=== PATIENT | female | born 1950 | race American Indian/Alaskan Native ===

== ENCOUNTER 2024-09-13 20:31 | Emergency (ER) | payer MEDICARE, BC, SELFPAY ==
[2024-09-13 20:35] VITALS: BP 177/87
[2024-09-13 20:59] LABS: % Basophils 0.7 % (0-2); % Eosinophils 4.1 % (0-6); % Immature Granulocytes 0.3 % (0-0.5); % Lymphocytes 34.6 % (20.5-51.1); % Monocytes 6.7 % (1.7-9.3); % Neutrophils 53.6 % (42.2-75.2); Absolute Basophils 0.1 10^3/uL (0-0.2); Absolute Eosinophils 0.3 10^3/uL (0-0.7); Absolute Lymphocytes 2.5 10^3/uL (1.2-3.4); Absolute Monocytes 0.5 10^3/uL (0.1-0.6); Absolute Neutrophils 3.9 10^3/uL (1.4-6.5); Hematocrit 39.3 % (37.0-47.0); Hemoglobin 13.1 g/dL (12.0-16.0); Mean Corp Hgb Conc. 33.3 g/dL (33.0-37.0); Mean Corpuscular Hgb 29.6 pg (27.0-31.0); Mean Corpuscular Volume 88.9 fL (81.0-99.0); Mean Platelet Volume 9.3 fL (7.4-10.4); Nucleated Red Blood Cells % 0 %; Platelet Count 325 10^3/uL (130-400); Red Blood Cell Count 4.42 10^6/uL (4.20-5.40); Red Cell Dist. Width 14.6 % (11.5-14.5); White Blood Cell Count 7.3 10^3/uL (4.8-10.8)
[2024-09-13 21:10] LABS: ALT (SGPT) 22 U/L (0-35); AST (SGOT) 26 U/L (14-36); Albumin 4.5 g/dl (3.5-5.0); Alkaline Phosphatase 45 U/L (38-126); Blood Urea Nitrogen 22 mg/dl (7-17); Calcium 10.3 mg/dl (8.4-10.2); Carbon Dioxide 21 mmol/L (22-30); Chloride 107 mmol/L (98-107); Glucose 223 mg/dl (70-99); Sodium 141 mmol/L (135-145); Total Bilirubin 0.2 mg/dl (0.2-1.3); Total Protein 7.1 g/dl (6.3-8.2); eGFR > 60.00
[2024-09-13 21:48] VITALS: BMI 22.9
[2024-09-13 22:04] VITALS: BP 190/74
[2024-09-13 22:12] LABS: Urine Albumin Trace (Neg - Trace); Urine Bilirubin Negative (Negative); Urine Character Clear (Clear); Urine Color Yellow; Urine Glucose 3+ (Negative); Urine Ketone Negative (Negative); Urine Leukocyte 2+ (Negative); Urine Nitrite Negative (Negative); Urine Occult Blood 2+ (Negative); Urine Urobilinogen Negative (Neg - 1+)
[2024-09-13 22:21] LABS: Urine Squamous Cell >30 /LPF (Few)
[2024-09-13 22:22] LABS: Urine Bacteria Many (Negative); Urine White Cell 16-20 /HPF (0-5)
--- NOTE | 2024-09-13 22:48 | ED.GENMED ---
History of Present Illness
General
Chief Complaint: Vaginal Bleeding
Source: patient
Exam Limitations: none
Time Seen by Provider: 09/13/24 21:29
History of Present Illness
History of Present Illness:
73-year-old female presents with persistent and worsening uterine prolapse with associated bleeding. She also notes dysuria and increased concede of urination. She notes lower abdominal discomfort that occasionally radiates to the mid back. No
fevers nausea or vomiting. No chest pain or shortness of breath.
Phy Exam
Physical Exam
Physical Exam:
General: Well-appearing female no acute respiratory distress
HEENT: Normocephalic atraumatic
Heart: Regular rate and rhythm
Lungs: Clear no wheeze
Abdomen is soft tender to the lower abdomen left greater than the right. No guarding rebound no bowel sounds
exam: This was performed with female utility spray operator in the room. There is a mild uterine prolapse. The urethra is irritated. No active bleeding
Extremities: No cyanosis
Course
Orders/Labs/Results
Orders:
Orders
09/13/24 20:53
Complete Blood Count/With Diff Urgent
Comprehensive Metabolic Panel Urgent
09/13/24 21:43
CT Abd/pelvis W Iv Cont Urgent
Comment:
Reason For Exam: lower abdominal pain
09/13/24 22:06
Urinalysis Reflex To Culture Urgent
Date Specimen was Collected: 09/13/24
Time Specimen was Collected: 20:43
Urine Microscopic Reflex Cult Urgent
Urine Culture Urgent
DARRIN Source: U
Specimen Description:
Date Specimen was Collected: 09/13/24
Time Specimen was Collected: 20:43
09/13/24 23:48
Cefdinir [Omnicef] 300 mg PO NOW STA
Abnormal Lab Results
09/13/24 09/13/24
20:53 22:06
RDW 14.6 H %
(11.5-14.5)
Carbon Dioxide 21 L mmol/L
(22-30)
BUN 22 H mg/dl
(7-17)
Glucose 223 H mg/dl
(70-99)
Calcium 10.3 H mg/dl
(8.4-10.2)
Ur Occult Blood Reflex 2+ A
(Negative)
Leukocyte Esterase Rfl 2+ A
(Negative)
Urine RBC 3-6 A /HPF
(0-2)
Urine WBC (Reflex) 16-20 A /HPF
(0-5)
Urine Bacteria (Reflex) Many A
(Negative)
Urine Glucose 3+ A
(Negative)
09/13/24 20:53
09/13/24 20:53
Vital Signs
Initial and Last Documented VS:
Initial Vital Signs
Temp Pulse BP Pulse Ox
97.8 F 86 177/87 98
09/13/24 20:35 09/13/24 20:35 09/13/24 20:35 09/13/24 20:35
Last Documented Vital Signs
Temp Pulse Resp BP Pulse Ox
97.8 F 67 18 190/74 97
09/13/24 20:35 09/13/24 22:30 09/13/24 22:33 09/13/24 22:04 09/13/24 22:30
*Critical Care Note
Total Time (30-74mins, 75-104mins- exclusive of procedures): Not Applicable
Update Note
Update Note:
Patient with uterine prolapse on exam but also has urinary symptoms. Question cystitis versus UTI versus diverticulitis.
Labs will be ordered and reviewed. Urinalysis concerning for possible UTI. CT pending CT shows uterine prolapse that suspected but no other acute finding. Will cover with Omnicef for UTI. Stable for discharge home referred to gynecology
ED Attending Note
-
Portions of this chart may have been created with voice recognition software.� Occasional wrong word or��sound alike� substitutions may have occurred due to the inherent limitations of voice recognition software.
Discharge Plan
Departure
Patient Disposition: Home (Routine Discharge)
Date of Disposition: 09/13/24
Time of Disposition: 23:53
Patient with high blood pressure during this ER visit?: No
Discharge Problem:
Acute UTI, Uterine prolapse
Instructions: Urinary Tract Infection, Adult ED
Prescriptions:
New
cefdinir 300 mg capsule
300 mg PO BID Qty: 14 0RF
Referrals:
Cecy Menon MD [Active] -
Roberta De Leon MD [Family Provider] -
Activity Restrictions/Additional Instructions:
Stay hydrated. Take antibiotics as directed. Return here if worse otherwise follow-up with gynecology
Interventions
Interventions:
*Risk Screen - Suicide Last Done: 09/13/24 21:49
*General Assessment Last Done: 09/13/24 21:49
*Neglect/Abuse Screening Last Done: 09/13/24 21:49
ED- Fall Risk Assessment Last Done: 09/13/24 22:35
*ED COVID-19 Vaccine History Last Done: 09/13/24 21:49
ED-Female Genitourinary Assessment Last Done: 09/13/24 22:33
Discharge Date and Time
Print Language: GREEK
[2024-09-14] MEDS: OMNICEF 300 MG PO (00:06)
== END 2024-09-14 00:18 | disposition home or self-care (01) ==
LOC: EMR 20:31
PROVIDERS: Emergency Medicine; EMERGENCY PHYSICIAN Emergency Medicine; FAMILY PHYSICIAN Family Medicine
DX: N39.0 Urinary tract infection, site not specified (principal); N81.4 Uterovaginal prolapse, unspecified
CPT/HCPCS: 99284; 74177; 80053; 81003; 81015; 85025; 87086; Q9967